=== PATIENT | female | born 1970 | race Caucasian/White ===

== ENCOUNTER 2017-09-09 19:11 | Inpatient (IN) | payer MEDICAID ==
[~2017-09-09] VITALS: Ht 154.9 cm; Wt 81.2 kg
[2017-09-09 19:31] VITALS: BP 145/63
--- NOTE | 2017-09-09 19:37 | NUR ---
PT TAKEN TO BED 2
--- NOTE | 2017-09-09 19:39 | NUR ---
47 Y/O F W/C/O R FLANK PAIN, NAUSEA, VOMITING AND DYSURIA X 7 DAYS. PT DENIES ANY MED HX, STATES HER PAIN IS 10/10 AT THE MOMENT. NO OTHER S/S OF DISTRESS NOTED. ER , MADE AWARE.
--- NOTE | 2017-09-09 20:08 | NUR ---
Dr. Pepe evaluating patient at bedside.
[2017-09-09] MEDS ORDERED: KETOROLAC 30 MG/ML VIAL IVP ONE (20:10)
[2017-09-09] MEDS ORDERED: ONDANSETRON 4 MG/2 ML VIAL IVP ONE (20:10)
[2017-09-09] MEDS ORDERED: NACL 0.9% 1,000 ML IV SCH (20:10)
--- NOTE | 2017-09-09 20:35 | NUR ---
ULTRASOUND AT BEDSIDE.
[2017-09-09 20:40] LABS: BASOPHILS # (AUTO) 0.4 K/uL (0.00-0.22); EOSINOPHILS # (AUTO) 0.1 K/uL (0-0.4); HEMATOCRIT 34.6 % (36-48); HEMOGLOBIN 11.5 g/dL (12.0-16.0); LYMPHOCYTES # (AUTO) 1.6 K/uL (2.5-16.5); MEAN CORPUSCULAR HEMOGLOBIN 29 pg (27-31); MEAN CORPUSCULAR HGB CONC 33 g/dL (33-37); MEAN CORPUSCULAR VOLUME 87 fL (80-94); MONOCYTES # (AUTO) 0.4 K/uL (0.8-1.0); NEUTROPHILS # (AUTO) 4.2 K/uL (1.8-7.7); PLATELET COUNT (AUTO) 205 K/uL (140-450); RED BLOOD CELL COUNT(AUTO) 3.96 MIL/uL (4.20-5.40); RED CELL DISTRIBUTION WIDTH 12.4 % (11.6-13.7); WHITE BLOOD COUNT (AUTO) 6.7 K/uL (4.8-10.8)
[2017-09-09 20:56] LABS: CARBON DIOXIDE 25.4 mmol/L (21-32); CREATININE 0.8 mg/dL (0.6-1.3); POTASSIUM 4.4 mmol/L (3.5-5.1)
[2017-09-09 21:02] LABS: ALBUMIN 3.5 g/dL (3.4-5.0); TOTAL BILIRUBIN 0.2 mg/dL (0.0-1.0)
--- NOTE | 2017-09-09 21:22 | NUR ---
PT RESTING IN BED, VSS. STATES HER PAIN HAS DECREASED TO 2/10. NO OTHER S/S OF DISTRESS NOTED AT THE MOMENT. FAMILY AT BEDSIDE.
--- NOTE | 2017-09-09 21:40 | NUR ---
Patient will be admitted to care of DR VERDUZCO. Admited to TELEMETRY. Will go to room 120B. Belongings list completed. Report to BRANDIE BAKER RN.
--- NOTE | 2017-09-09 21:47 | NUR ---
PT TRANSFERED TO FLOOR VIA GURNEY, ACCOMPANIED BY ESTELLE ERICKAY NURSE AND EMT. NO S/S OF DISTRESS NOTED DURING TRANSFER.
[2017-09-09] MEDS ORDERED: MORPHINE SULFATE 2 MG/ML SYR IVP PRN (22:10)
[2017-09-09] MEDS ORDERED: DOCUSATE SODIUM 100 MG GELCAP PO PRN (22:10)
[2017-09-09] MEDS ORDERED: ACETAMINOPHEN 325 MG TAB PO PRN (22:10)
[2017-09-09] MEDS ORDERED: ONDANSETRON 4 MG/2 ML VIAL IM/IVP PRN (22:10)
[2017-09-09 22:55] LABS: APPEARANCE,URINE CLEAR (CLEAR); BILIRUBIN,URINE NEGATIVE (NEGATIVE); BLOOD, URINE NEGATIVE (NEGATIVE); COLOR,URINE YELLOW (YELLOW); LEUKOCYTE ESTERASE ,URINE NEGATIVE (NEGATIVE); NITRITE, URINE NEGATIVE (NEGATIVE); PH,URINE 6.5 (5.0-9.0); UGLUCOSE NEGATIVE (NEGATIVE)
--- NOTE | 2017-09-09 23:00 | NUR ---
PATIENT ARRIVED FROM ER VIA GURNEY. AT THE BEDSIDE. PT IS AA0X4, ON ROOM AIR. NO SIGNS OF ACUTE DISTRESS NOTED. RESPIRATIONS EVEN AND UNLABORED, BOWEL SOUNDS ACTIVE ON ALL FOUR QUADRANTS. SKIN WARM TO TOUCH, SKIN COLOR APPROPRIATE TO ETHNICITY. SKIN INTACT. IV ACCESS ON LEFT AC INTACT AND PATENT. AMBULATORY WITH BP. MRSA COLLECTED. PLAN OF CARE DISCUSSED, PT VERBALIZED UNDERSTANDING. SAFETY MEASURES IN PLACE, BED IN LOW POSITION, BILATERAL HALF SIDE RAILS UP, CALL LIGHT WITHIN REACH, WILL CONTINUE TO MONITOR.
[2017-09-09] MEDS: NACL 0.9% 1,000 ML IV SCH (23:01)
[2017-09-09 23:07] LABS: PROTHROMBIN TIME 9.5 secs (10.8-13.4)
[2017-09-09 23:08] LABS: CHOL/HDL RATIO 4.2 (1-4.5); FREE T4 (FREE THYROXINE) 0.98 ng/dL (0.76-1.46); MAGNESIUM 2.1 mg/dL (1.8-2.4); PHOSPHORUS 3.2 mg/dL (2.5-4.9); THYROID STIMULATING HORMONE 5.07 uIU/mL (0.34-3.74)
[2017-09-09 23:15] LABS: RBC,URINE NONE SEEN /HPF (0-5); WBC,URINE NONE SEEN /HPF (0-5)
[2017-09-10] VITALS: BP 112/48
[2017-09-10 01:41] LABS: BARBITURATE, URINE NEG. ng/ml (NEG <=200); BENZODIAZEPINE, URINE NEG. ng/mL (NEG <=200); CANNABINOID, URINE NEG. ng/mL (NEG <=50); COCAINE, URINE NEG. ng/mL (NEG <=300); OPIATE, URINE NEG. ng/mL (NEG <=2000); PHENCYCLIDINE SCREEN,URINE NEG. ng/mL (NEG <=25)
[2017-09-10] MEDS ORDERED: HYDROmorphone PFS 2 MG/ML SYR IVP PRN (01:45)
[2017-09-10] MEDS ORDERED: cefTRIAXone 1,000 MG VIAL ONE ×2 (02:04→03:06)
--- NOTE | 2017-09-10 03:00 | NUR ---
PT SLEEPING, AROUSABLE TO VOICE. NO SIGNS OF ACUTE DISTRESS NOTED. RESPIRATIONS EVEN AND UNLABORED. BED IN LOW POSITION, BILATERAL HALF SIDE RAILS UP, CALL LIGHT WITHIN REACH, WILL CONTINUE TO MONITOR.
[2017-09-10] MEDS ORDERED: ACETAMINOPHEN 325 MG TAB PO PRN (03:55)
[2017-09-10 04:00] VITALS: BP 117/65
[2017-09-10 06:02] LABS: BASOPHILS # (AUTO) 0.2 K/uL (0.00-0.22); BASOPHILS % (AUTO) 2.6 % (0.0-2.0); EOSINOPHILS # (AUTO) 0.1 K/uL (0-0.4); EOSINOPHILS % (AUTO) 0.8 % (0.0-4.0); HEMATOCRIT 33.1 % (36-48); HEMOGLOBIN 11.1 g/dL (12.0-16.0); LYMPHOCYTES # (AUTO) 1.7 K/uL (2.5-16.5); LYMPHOCYTES % (AUTO) 22.5 % (20.5-51.1); MEAN CORPUSCULAR HEMOGLOBIN 30 pg (27-31); MEAN CORPUSCULAR HGB CONC 34 g/dL (33-37); MEAN CORPUSCULAR VOLUME 89 fL (80-94); MONOCYTES # (AUTO) 0.5 K/uL (0.8-1.0); MONOCYTES % (AUTO) 6.4 % (1.7-9.3); NEUTROPHILS # (AUTO) 4.9 K/uL (1.8-7.7); NEUTROPHILS % (AUTO) 67.7 % (42.2-75.2); PLATELET COUNT (AUTO) 182 K/uL (140-450); RED BLOOD CELL COUNT(AUTO) 3.71 MIL/uL (4.20-5.40); RED CELL DISTRIBUTION WIDTH 12.8 % (11.6-13.7); WHITE BLOOD COUNT (AUTO) 7.4 K/uL (4.8-10.8)
--- NOTE | 2017-09-10 06:02 | NUR ---
PT IS SLEEPING, AROUSABLE TO VOICE. NO SIGNS OF ACUTE DISTRESS NOTED. RESPIRATIONS EVEN AND UNLABORED. BED IN LOW POSITION, BILATERAL HALF SIDE RAILS UP, CALL LIGHT WITHIN REACH, WILL CONTINUE TO MONITOR.
[2017-09-10 06:14] LABS: ANION GAP 12.4 (8-16); CARBON DIOXIDE 24.9 mmol/L (21-32); CREATININE 0.8 mg/dL (0.6-1.3); POTASSIUM 4.3 mmol/L (3.5-5.1)
[2017-09-10 06:19] LABS: MAGNESIUM 1.9 mg/dL (1.8-2.4); PHOSPHORUS 2.6 mg/dL (2.5-4.9)
--- NOTE | 2017-09-10 07:25 | NUR ---
ENDORSED PT TO AM NURSE FOR CONTINUITY OF CARE. PT IS IN STABLE CONDITION.
--- NOTE | 2017-09-10 07:30 | NUR ---
RECEIVED REPORT FROM FISH PROTECTOR NURSE, PT IS A/OX4, AMBULATORY, SKIN IS INTACT, IV IS ON THE LEFT AC, PATENT, INTACT, FLUSHING WELL, NO S/S OF RESPIRATORY DISTRESS OR DISCOMFORT NOTED, DISCUSSED PLAN OF CARE WITH PT, PT VERBALIZED UNDERSTANDING, SAFETY/FALL PRECAUTIONS ARE IN PLACE, CALL LIGHT IS WITHIN REACH, WILL CONTINUE TO MONITOR.
[2017-09-10] MEDS: NACL 0.9% 1,000 ML IV SCH ×3 (07:46→20:13)
[2017-09-10 08:00] VITALS: BP 117/62
[2017-09-10] MEDS: LACTOBACILLUS RHAMNOSUS GG 1 EACH CAP PO SCH (09:00)
[2017-09-10] MEDS: PANTOPRAZOLE 40 MG INJ VIAL IVP SCH (09:00)
--- NOTE | 2017-09-10 09:00 | NUR ---
PT OFF UNIT, TAKEN TO OR TO HAVE PROCEDURE DONE.
[2017-09-10] MEDS ORDERED: fentaNYL 0.05 MG/ML VIAL ONE (09:38)
[2017-09-10] MEDS ORDERED: HYDROmorphone PFS 2 MG/ML SYR ONE (09:38)
[2017-09-10] MEDS ORDERED: HYDROmorphone 1 MG/ML AMP IVP PRN (09:50)
[2017-09-10] MEDS ORDERED: ONDANSETRON 4 MG/2 ML VIAL IVP PRN (09:50)
[2017-09-10] MEDS: BUPIVACAINE-MPF 0.25% 30 ML VIAL INJ ONE ×2 (09:56→10:34)
--- NOTE | 2017-09-10 10:12 | NUR ---
PATIENT HAS BEEN SCREENED AND CATEGORIZED MODERATE NUTRITION RISK. PATIENT WILL BE SEEN WITHIN 3-5 DAYS OF ADMISSION. 09/12/17-09/14/[address]
--- NOTE | 2017-09-10 11:40 | NUR ---
PATIENT RETURNED TO UNIT PT IS DROWSY, PT IS S/P LAP RHYS, PT HAS 4 ABDOMINAL BAND AIDS, DRY AND INTACT AT THIS TIME, PATIENTS VITALS BP 111/59, O2:95%, HR:67, TEMP 97.5, RESP: 18, PATIENT'S IS AT BEDSIDE, CALL LIGHT IS WITHIN REACH, WILL CONTINUE TO MONITOR.
[2017-09-10 12:00] VITALS: BP 111/59
--- NOTE | 2017-09-10 12:25 | NUR ---
PT SLEEPING IN BED, PATIENT'S IS AT BEDSIDE, CALL LIGHT IS WITHIN REACH.
[2017-09-10] MEDS ORDERED: SENNA 8.6 MG TAB PO PRN (14:25)
--- NOTE | 2017-09-10 15:15 | NUR ---
INSTRUCTED THE PATIENT ON THE USE OF INCENTIVE SPIROMETER, PT VERBALIZED UNDERSTANDING.
[2017-09-10 16:00] VITALS: BP 114/53
[2017-09-10] MEDS: HYDROcodone/APAP 7.5/325 MG 1 TAB PO PRN ×2 (16:39→21:39)
--- NOTE | 2017-09-10 19:11 | NUR ---
ENDORSED PT TO RETAIL CUSTOMER SERVICE REPRESENTATIVE NURSE FOR CONTINUITY OF CARE. PT STABLE AT THIS TIME.
--- NOTE | 2017-09-10 19:20 | NUR ---
RECEIVED FROM AM RN IN BED WITH VISITORS . VERBALIZES WELL. NO SOB. DENIES PAIN AT TH IS TIME. CALL LIGHT WITH IN REACH. S/P LAP CHOLECYSTECTOMY TODAY. NO BLEEDING TO SURGICAL SITES.
[2017-09-10] MEDS: CALCIUM CARBONATE 500 MG TAB PO SCH (21:39)
--- NOTE | 2017-09-10 21:50 | NUR ---
MEDICATED WITH [facility]CO P.O. REQUESTED BY PT. STATED SHE CAN NOT SIT ON THE BEDPAN RT TOO MUCH PAIN. MEDICATED REQUESTED. ABLE TO VERBALIZE NEEDS WELL.
--- NOTE | 2017-09-11 00:10 | NUR ---
PT. ASSISTED TO BED ABAD. ABLE TO U SE CALL LIGHT . NO SOB.
[2017-09-11 00:29] VITALS: BP 104/53
--- NOTE | 2017-09-11 03:03 | NUR ---
SLEEPING. NO RESTLESSNESS NOTED.. CALL LIGHT WITH IN EACH AT ALL TIMES.
[2017-09-11 05:07] VITALS: BP 114/62
[2017-09-11] MEDS: HYDROcodone/APAP 7.5/325 MG 1 TAB PO PRN ×2 (05:09→12:31)
--- NOTE | 2017-09-11 06:08 | NUR ---
MEDICATED WITH PAIN RELIEVER NORCO REQUESTED RT INCISION SITE WITH PAIN. NEW IVF SITE TO RIGHT FOREARM#22 INSERTED. TOLERATED WELL GOOD BLOOD RETURN. OLD IVF SITE TO LAC DISCONTINUED RT SORE SITE PER PT. TOLERATED WELL . TIP INTACT.
[2017-09-11 06:46] LABS: BASOPHILS # (AUTO) 0.2 K/uL (0.00-0.22); BASOPHILS % (AUTO) 2.4 % (0.0-2.0); EOSINOPHILS # (AUTO) 0.1 K/uL (0-0.4); HEMATOCRIT 30.7 % (36-48); LYMPHOCYTES # (AUTO) 1.7 K/uL (2.5-16.5); LYMPHOCYTES % (AUTO) 25.3 % (20.5-51.1); MEAN CORPUSCULAR HEMOGLOBIN 29 pg (27-31); MEAN CORPUSCULAR HGB CONC 33 g/dL (33-37); MEAN CORPUSCULAR VOLUME 89 fL (80-94); MONOCYTES # (AUTO) 0.4 K/uL (0.8-1.0); MONOCYTES % (AUTO) 6.1 % (1.7-9.3); NEUTROPHILS # (AUTO) 4.4 K/uL (1.8-7.7); NEUTROPHILS % (AUTO) 65.2 % (42.2-75.2); PLATELET COUNT (AUTO) 163 K/uL (140-450); RED BLOOD CELL COUNT(AUTO) 3.46 MIL/uL (4.20-5.40); RED CELL DISTRIBUTION WIDTH 12.8 % (11.6-13.7); WHITE BLOOD COUNT (AUTO) 6.8 K/uL (4.8-10.8)
[2017-09-11 06:59] LABS: ANION GAP 9.2 (8-16); CARBON DIOXIDE 26.8 mmol/L (21-32); CREATININE 0.7 mg/dL (0.6-1.3)
--- NOTE | 2017-09-11 07:18 | NUR ---
SLEEPING.ENDORSED TO THE NEXT RN FOR CONTINUITY OF CARE. WOKE UP EASILY WHEN CALLED BY NAME.
--- NOTE | 2017-09-11 07:20 | NUR ---
RECEIVED REPORT FROM ARBORICULTURIST NURSE, PT IS A/OX4, AMBULATORY, SKIN IS INTACT, IV IS ON THE RIGHT FA, PATENT, INTACT, FLUSHING WELL, NO S/S OF RESPIRATORY DISTRESS OR DISCOMFORT NOTED, DISCUSSED PLAN OF CARE WITH PT, PT VERBALIZED UNDERSTANDING, SAFETY/FALL PRECAUTIONS ARE IN PLACE, CALL LIGHT IS WITHIN REACH, WILL CONTINUE TO MONITOR.
[2017-09-11] MEDS: NACL 0.9% 1,000 ML IV SCH (07:37)
[2017-09-11 08:00] VITALS: BP 105/60
[2017-09-11] MEDS: LACTOBACILLUS RHAMNOSUS GG 1 EACH CAP PO SCH (08:41)
[2017-09-11] MEDS: CALCIUM CARBONATE 500 MG TAB PO SCH (08:41)
[2017-09-11] MEDS: PANTOPRAZOLE 40 MG INJ VIAL IVP SCH (08:42)
--- NOTE | 2017-09-11 08:42 | NUR ---
DUE MEDICATIONS GIVEN, PT TOLERATED WELL, CALL LIGHT IS WITHIN REACH.
--- NOTE | 2017-09-11 10:30 | NUR ---
PT RESTING IN BED, CALL LIGHT IS WITHIN REACH.
[2017-09-11 12:19] LABS: T4 (THYROXINE) 8.1 ug/dL (4.5-12.0)
--- NOTE | 2017-09-11 14:00 | NUR ---
PATIENT DISCHARGE INSTRUCTIONS GIVEN, IV REMOVED, CATHETER TIP INTACT, ID WRIST BAND REMOVED. PT WAITING TO BE PICKED UP BY HER .
--- NOTE | 2017-09-11 15:20 | NUR ---
PT STABLE UPON DISCHARGE ACCOMPANIED BY HER .
== END 2017-09-11 15:20 | disposition home or self-care (01) | DRG 263 ==
LOC: MED 19:11 → MTU 22:11
PROVIDERS: ADMIT Family Medicine; ATTEND Family Medicine
PROC: 0FT44ZZ Resection of Gallbladder, Percutaneous Endoscopic Approach (ICD-10-PCS; principal; 2017-09-10 09:30)
DX: K80.00 Calculus of gallbladder with acute cholecystitis without obstruction (principal); E03.9 Hypothyroidism, unspecified; E78.5 Hyperlipidemia, unspecified; D64.9 Anemia, unspecified; E66.9 Obesity, unspecified; Z68.34 Body mass index [BMI] 34.0-34.9, adult
CPT/HCPCS: 36415; 71010; 76705; 80048; 80053; 80305; 81001; 81025; 82140; 82150; 82374; 83036; 83605; 83690; 83735; 83880; 84100; 84436; 84439; 84443; 84479; 84484; 85025; 85610; 85730; 86886; 86900; 86901; 87040; 87081; 88304; 93005; 96361; 96374; 96375; 99285; C9113; J0696; J1170; J1885; J2270; J2405; J3010; J3490; J7030; J7060; Q0092

== ENCOUNTER 2019-12-03 15:21 | Emergency (ER) | payer MEDICAID ==
[~2019-12-03] VITALS: Ht 157.5 cm; Wt 84.8 kg
[2019-12-03 15:44] VITALS: BP 125/70
--- NOTE | 2019-12-03 16:08 | NUR ---
PT TO BED 6 WITH STEADY GAIT
--- NOTE | 2019-12-03 16:33 | NUR ---
49 Y/F PRESENTS TO ED WITH DAUGHTER FOR DOG BITE TO LEFT POSTERIOR ANKLE, APPROX 0.5 INCH SCRATCH. WOUND LOOKS CLEAN NO DISCHARGE OR DRAINAGE. PT C/O THROBBING, BURNING, 4/10 PAIN THAT RADIATES UP TO HALF OF L CALF. DENIES ANY FEVERS OR CHILLS. CANNOT RECALL WHEN LAST TDAP WAS TAKEN. NP DENIES USE OF RX. NKDA
--- NOTE | 2019-12-03 16:43 | NUR ---
LALA TELLEZ AT BEDSIDE.
[2019-12-03] MEDS ORDERED: BACITRACIN OINT 500 UNITS/GM PKT TP ONE (16:45)
[2019-12-03 17:06] VITALS: BP 146/73
--- NOTE | 2019-12-03 17:07 | NUR ---
Patient discharged with v/s stable. Written and verbal after care instructions given and explained. Patient alert, oriented and verbalized understanding of instructions. Ambulatory with steady gait. All questions addressed prior to discharge. ID band removed. Patient advised to follow up with PMD. Rx of BACITRACIN AND TDAP given. Patient educated on indication of medication including possible reaction and side effects. Opportunity to ask questions provided and answered.
== END 2019-12-03 17:07 | disposition home or self-care (01) ==
LOC: MED 15:21
DX: S90.572A Other superficial bite of ankle, left ankle, initial encounter (principal); W54.0XXA Bitten by dog, initial encounter; Y93.89 Activity, other specified; Y92.096 Garden or yard of other non-institutional residence as the place of occurrence of the external cause; Y99.8 Other external cause status
CPT/HCPCS: 90471; 90715; 99283